=== PATIENT | female | born 1985 | race Two or more races ===

== ENCOUNTER → 2025-09-05 | Emergency (ER) | payer OTHER ==
[~2025-09-05] VITALS: Ht 157.5 cm; Wt 72.0 kg
[~2025-09-05] MED LIST: DEXT15DR21 OS; ERYT3.5O8 OS
[2025-09-05 16:24] VITALS: BP 159/98; PULSE 96; RESP 18; TEMP 97.5; O2SAT 100
[2025-09-05] MEDS: PROPARACAINE HCL 0.5% 15 ML OPHTHALMIC SOLUTION OS ONE (16:57)
[2025-09-05] MEDS: FLUORESCEIN SODIUM 1 MG STRIP OS ONE (16:57)
== END | disposition still patient (30) ==
LOC: EMS 16:19
DX: S00.212A Abrasion of left eyelid and periocular area, initial encounter (principal); X58.XXXA Exposure to other specified factors, initial encounter; Y93.89 Activity, other specified; Y92.89 Other specified places as the place of occurrence of the external cause; Y99.8 Other external cause status
CPT/HCPCS: 99283